=== PATIENT | male | born 1940 | race Two or more races ===

== ENCOUNTER → 2022-11-12 | Emergency (ER) | payer OTHER ==
[~2022-11-12] VITALS: Ht 180.3 cm; Wt 79.4 kg
== END | disposition home or self-care (01) ==
LOC: ER 01:14
DX: R11.2 Nausea with vomiting, unspecified (principal); T40.715A Adverse effect of cannabis, initial encounter; Y92.9 Unspecified place or not applicable; F10.10 Alcohol abuse, uncomplicated; I10 Essential (primary) hypertension; Z88.0 Allergy status to penicillin

== ENCOUNTER 2024-09-10 10:30 | Inpatient (IN) | payer OTHER ==
[~2024-09-10] VITALS: Ht 180.3 cm; Wt 79.4 kg
[2024-09-10] MEDS ORDERED: PANTOPRAZOLE SO40 MG PO (13:07)
[2024-09-10] MEDS ORDERED: ROSUVASTATIN CA20 MG PO (13:07)
[2024-09-10] MEDS ORDERED: TRILIPIX135 MG PO (13:07)
[2024-09-10] MEDS ORDERED: LOSARTAN POTASS25 MG PO (13:07)
[2024-09-19] MEDS ORDERED: METRONIDAZOLE/SODIUM CHLORIDE 500 MG/100 ML PIGGYBACK IV ONE (11:00)
[2024-09-19] MEDS ORDERED: levoFLOXacin IN DEXTROSE 5 % 500MG/100ML PIGGYBAG IV ONE (11:15)
[2024-09-19] MEDS ORDERED: CIPROFLOXACIN IN 5 % DEXTROSE 400 MG/200 ML PIGGYBAG IV SCH ×2 (11:26→21:00)
[2024-09-19] MEDS ORDERED: LACTOBACILLUS ACIDOPHILUS 1 CAP CAP PO SCH (11:27)
[2024-09-19] MEDS ORDERED: TAMSULOSIN HCL 0.4 MG CAP PO SCH (11:27)
[2024-09-19] MEDS ORDERED: OxyCODONE HCL 5 MG TABLET (ROXICODONE) PO PRN (11:30)
[2024-09-19] MEDS ORDERED: ONDANSETRON HCL 2 MG/ML VIAL IV PRN (11:30)
[2024-09-19] MEDS ORDERED: RINGERS SOLUTION,LACTATED 1,000 ML IV SCH (11:30)
[2024-09-19] MEDS ORDERED: MORPHINE SULFATE 4 MG/ML CARTRIDGE IV PRN (11:30)
[2024-09-19] MEDS ORDERED: ACETAMINOPHEN 500 MG GEL..CAP PO SCH (12:00)
[2024-09-19] MEDS ORDERED: ENALAPRILAT DIHYDRATE 1.25 MG/ML VIAL IV ONE (12:15)
[2024-09-19] MEDS ORDERED: MORPHINE SULFATE 4 MG/ML VIAL IV ONE (12:50)
[2024-09-19] MEDS ORDERED: HYOSCYAMINE SULFATE 0.125 MG TAB.SUBL SL SCH (13:00)
[2024-09-19] MEDS ORDERED: ONDANSETRON HCL 2 MG/ML VIAL IV ONE (13:00)
[2024-09-19] MEDS ORDERED: METRONIDAZOLE/SODIUM CHLORIDE 500 MG/100 ML PIGGYBACK IV SCH (13:00)
[2024-09-19 16:00] VITALS: BP 142/73; O2SAT 98
[2024-09-19] MEDS ORDERED: GABAPENTIN 300 MG CAPSULE PO SCH (17:00)
[2024-09-19] MEDS ORDERED: FAMOTIDINE/PF 20 MG/2 ML VIAL IV PUSH SCH (21:00)
[2024-09-20 01:03] VITALS: BP 113/62; O2SAT 96
[2024-09-20 08:24] LABS: HEMATOCRIT 35.1 % (39.0-48.0); HEMOGLOBIN 11.9 g/dL (13-16.00); MEAN CELL VOLUME 90.6 fL (80.0-100.00); MEAN CORPUSCULAR HEMOGLOBIN 30.7 pg (27.00-32.0); MEAN CORPUSCULAR HGB CONC 33.8 g/dl (32.0-36.0); PLATELET COUNT 207 K/uL (150-450); RED BLOOD COUNT 3.88 M/uL (4.00-6.00); RED CELL DISTRIBUTION WIDTH 13.8 % (11.5-14.5)
[2024-09-20 08:25] LABS: ALBUMIN 2.9 gm/dL (3.4-5.0); CALCIUM 8.6 mg/dL (8.5-10.1); CREATININE SERUM 1.24 mg/dL (0.70-1.30); GFR 55.95; MAGNESIUM 1.6 mg/dL (1.8-2.4); PHOSPHOROUS 2.8 mg/dL (2.5-4.9); POTASSIUM 4.26 mEq/L (3.5-5.1)
[2024-09-20] MEDS ORDERED: PANTOPRAZOLE SODIUM 40 MG TABLET.DR PO SCH (09:00)
[2024-09-20 10:08] VITALS: BP 123/61; O2SAT 97
[2024-09-20] MEDS ORDERED: MAGNESIUM SULFATE IN WATER 50 ML IV ONE (11:15)
[2024-09-20 16:28] VITALS: BP 146/73; O2SAT 95
[2024-09-20] MEDS ORDERED: ENOXAPARIN SODIUM 40 MG/0.4 ML SYRINGE SUBCUTANEO SCH (17:00)
[2024-09-20] MEDS ORDERED: LOSARTAN POTASSIUM 25 MG TABLET PO SCH (18:48)
[2024-09-21 01:13] VITALS: BP 126/66; O2SAT 94
[2024-09-21] MEDS ORDERED: ENOXAPARIN SODIUM 40 MG/0.4 ML SYRINGE SUBCUTANEO SCH (09:00)
[2024-09-21 10:27] VITALS: BP 129/74; O2SAT 98
[2024-09-21] MEDS ORDERED: HYOSCYAMINE0.125 M1 SL (15:59)
[2024-09-21] MEDS ORDERED: INTESTINEX680 M1 PO (16:00)
[2024-09-21] MEDS ORDERED: TRAMADOL HCL50 MG PO (16:00)
== END 2024-09-21 17:07 | disposition home or self-care (01) | DRG 330 ==
LOC: O/R 09-19 06:00 → SURH 09-19 06:00
PROVIDERS: ADMIT Surgery; ATTEND Surgery
PROC: 0DBP4ZZ Excision of Rectum, Percutaneous Endoscopic Approach (ICD-10-PCS; 2024-09-19)
PROC: 0DJD8ZZ Inspection of Lower Intestinal Tract, Via Natural or Artificial Opening Endoscopic (ICD-10-PCS; 2024-09-19)
PROC: 0DTN4ZZ Resection of Sigmoid Colon, Percutaneous Endoscopic Approach (ICD-10-PCS; principal; 2024-09-19 14:45)
DX: K57.30 Diverticulosis of large intestine without perforation or abscess without bleeding (principal); K56.690 Other partial intestinal obstruction; K62.5 Hemorrhage of anus and rectum; K64.8 Other hemorrhoids; D64.89 Other specified anemias; E88.09 Other disorders of plasma-protein metabolism, not elsewhere classified; E83.42 Hypomagnesemia; I10 Essential (primary) hypertension